=== PATIENT | male | born 1965 | race Caucasian/White ===

== ENCOUNTER 2020-11-05 21:32 | Emergency (ER) | payer OTHER ==
[~2020-11-05] VITALS: Ht 175.3 cm; Wt 87.1 kg
[2020-11-05] MEDS ORDERED: VITAMIN D21250 MCG PO (21:46)
[2020-11-05] MEDS ORDERED: ATORVASTATIN CA40 MG PO (21:47)
[2020-11-05] MEDS ORDERED: PIOGLITAZONE HC15 MG PO (21:47)
[2020-11-05] MEDS ORDERED: GLIPIZIDE-METF1 EAC1 PO (21:48)
[2020-11-05] MEDS ORDERED: LISINOPRIL-HCT1 EACH PO (21:48)
[2020-11-05] MEDS ORDERED: MAPAP500 MG PO (22:45)
[2020-11-05] MEDS ORDERED: LIDODERM1 EACH TOP (22:45)
[2020-11-05] MEDS ORDERED: VOLTAREN100 GM TOP (22:45)
== END 2020-11-05 23:17 | disposition home or self-care (01) ==
LOC: ED 21:32
DX: M25.552 Pain in left hip (principal); I10 Essential (primary) hypertension; E78.00 Pure hypercholesterolemia, unspecified; Z79.899 Other long term (current) drug therapy
CPT/HCPCS: 73502; 99283-25; A9270